=== PATIENT | male | born 1945 | race Hispanic/Latino ===

== ENCOUNTER 2017-09-18 12:07 | Emergency (ER) | payer OTHER, MEDICARE ==
[~2017-09-18 12:07] MED LIST: ASPIRIN ADULT L81 M1 PO; ASPIRIN81 M1; ATORVASTATIN CA40 MG PO; FENOFIBRATE40 MG PO; FLEXERIL10 MG PO; JANUVIA 100MG100 MG PO; LIDODERM 5% PAT1 PAT TOP; METFORMIN1000 MG PO; MULTIVITAMIN1 TAB; NAPROXEN500 MG PO; NORVASC 5MG TAB5 MG PO
--- NOTE | 2017-09-18 14:18 | ED GENERAL ADULT ---
History of Present Illness General Chief Complaint: Laceration Procedure Stated Complaint: LAC TO HEAD Source: patient Exam Limitations: language barrier Vital Signs & Intake/Output Vital Signs & Intake/Output Vital Signs Date Time Temp Pulse Resp B/P B/P Pulse O2 O2 Flow FiO2 Mean Ox Delivery Rate 09/18 1747 98.2 78 18 144/62 97 Room Air Room Air 09/18 1435 98.2 09/18 1433 98.2 77 20 146/66 97 Room Air 09/18 1247 98.2 73 16 152/72 99 Room Air Room Air Allergies Coded Allergies: No Known Allergies (09/18/17) Reconcile Medications Amlodipine (Norvasc 5MG Tab) 5 MG TAB 1 TAB PO DAILY blood pressure (Reported ) Aspirin 81 MG CTB 1 heart (Reported) Aspirin (Aspirin Adult Low Strength) 81 MG ECT 1 TAB PO D ANTICOAG Atorvastatin Calcium (Lipitor) 40 MG TAB 1 TAB PO DAILY CHOLESTEROL (Reported ) CYCLOBENZAPRINE HCL (Flexeril) 10 MG TAB 1 TAB PO TID PAIN CONTROL (Reported) Avoid operating motor vehicle or heavy machinery Fenofibrate 40 MG TAB 134 PO DAILY cholesterol (Reported) METFORMIN HCL (Metformin) 1,000 MG TAB 1 TAB PO BID DIABETES (Reported) Multivitamin (Multiple Vitamins) 1 TAB TAB 1 supp (Reported) Sitagliptin Phosphate (Januvia) 100 MG TAB 1 TAB PO DAILY diabetes (Reported) Triage Note: PT TO TRIAGE WITH LAC TO FOREHEAD. PT HIT HEAD OF METAL TABLE. DENIES LOC. BLEEDING CONTROLED, LAC IS 1.5 INCHES ACCROSS. UNSURE ON LAST TETANUS Triage Nurses Notes Reviewed? yes Onset: Abrupt Duration: hour(s): Timing: single episode today HPI: 72 y/o male with h/o HTN, HLD, DM presenting with forehead lac s/p mechancial fall just TECHNICAL PLANNER. Pt reports he tripped and fell, striking head on edge of metal table. No LOC. On 81mg ASA daily, no AC. Denies LAWSON, visual changes, nausea, vomiting. Unsure of last tetanus. (Althea Santos) Past History Travel History Traveled to [place] past 21 day No Medical History Any Pertinent Medical History? see below for history Neurological: NONE EENT: NONE Cardiovascular: hypertension, hyperlipidemia Respiratory: NONE Gastrointestinal: NONE Hepatic: NONE Renal: NONE Musculoskeletal: NONE Psychiatric: NONE Endocrine: diabetes Blood Disorders: NONE Cancer(s): NONE ACTIVE DIRECTORY ENGINEER/Reproductive: NONE History of MRSA: No History of VRE: No History of CDIFF: No Surgical History Surgical History: hernia repair-inguinal Psychosocial History Who do you live with Spouse What is your primary language [place] Tobacco Use: Never used Family History Hx Contributory? No (Althea Santos) Review of Systems Review of Systems Constitutional: Reports: no symptoms. EENTM: Reports: no symptoms. Respiratory: Reports: no symptoms. Cardiovascular: Reports: no symptoms. GI: Reports: no symptoms. Genitourinary: Reports: no symptoms. Musculoskeletal: Reports: no symptoms. Skin: Reports: see HPI. Neurological/Psychological: Reports: no symptoms. Hematologic/Endocrine: Reports: no symptoms. Immunologic/Allergic: Reports: no symptoms. (Althea Santos) Physical Exam Physical Exam General Appearance: well developed/nourished, no apparent distress, alert, awake , comfortable Head: atraumatic, normal appearance Eyes: Bilateral: normal appearance, PERRL, EOMI. Ears, Nose, Throat: normal ENT inspection Neck: normal inspection, full range of motion, no midline tenderness Respiratory: normal breath sounds, chest non-tender, lungs clear Cardiovascular: regular rate/rhythm, normal peripheral pulses Gastrointestinal: soft, non-tender Back: normal inspection, normal range of motion, no vertebral tenderness Extremities: normal inspection, normal range of motion Neurologic/Psych: no motor/sensory deficits, awake, alert, oriented x 3, normal gait, normal mood/affect, striper spray gun II-XII nml as tested, normal cerebellar function Reflexes: 2+: bicep (R), bicep (L), tricep (L), tricep (L), knee (R), knee (L), ankle (R), ankle (L). Skin: normal color, warm/dry, curved lac ~2-3 cm to center of forehead, +slow arterial bleed to center of wound. No exposed tendons or nerves or FB. Core Measures ACS in differential dx? No CVA/TIA Diagnosis: No Sepsis Present: No Sepsis Focused Exam Completed? No (Althea Santos) Progress Differential Diagnoses I considered the following diagnoses in my evaluation of the patient: [Forehead lac vs arterial injury, low concern for nerve injury vs FB vs tendon injury vs ICH vs cranial fx vs facial fx vs c-spine fx] Plan of Care: CT head and c-spine unremarkable. Arterial bleed controlled with epi and surgicel. Wound repaired with good skin approximation. Counseled on wound care and given strict return precautions for feves, purulent drainage, erythema, expending hematoma, or uncontrolled bleeding. Tetanus updated. Discussed with Dr. Schwartz. Initial ED EKG: none (Alteha Santos) Departure Departure Disposition: HOME OR SELF CARE Condition: Stable Clinical Impression Primary Impression: Forehead laceration Secondary Impressions: Closed head injury Referrals: Adrian Lopes MD (PCP/Family) Additional Instructions: Keep the wound clean and dry. Follow up for suture removal in 7 days. Return to the emergency room for any new or worsening symptoms, including signs of bleeding or infection. Departure Forms: Customer Survey General Discharge Information (Althea Santos) PA/BILINGUAL CALL CENTER REPRESENTATIVE Co-Sign Statement Statement: ED Attending supervision documentation- [] I saw and evaluated the patient. I have also reviewed all the pertinent lab results and diagnostic results. I agree with the findings and the plan of care as documented in the PA's/BILINGUAL CALL CENTER REPRESENTATIVE's documentation. [x] I have reviewed the ED Record and agree with the PA's/BILINGUAL CALL CENTER REPRESENTATIVE's documentation. [] Additions or exceptions (if any) to the PAs/BILINGUAL CALL CENTER REPRESENTATIVE's note and plan are summarized below: [] (Juan Jose Schwartz DO) Procedures Laceration/Wound Repair Laceration/Wound Repair: Wound Location: face (forehead) Wound's Depth, Shape: irregular Wound Length (cm): 3 Wound Explored: clean, no foreign body removed Irrigated w/ Saline (ccs): 120 Betadine Prep? Yes Anesthesia: lidocaine w/ epi (1%) Wound Repaired With: sutures Suture Size/Type: 5:0, nylon Number of Sutures: 5 Layer Closure? No Date of Last Tetanus: 09/18/17 (Althea Santos) Critical Care Note Critical Care Note Critical Care Time: non-applicable (Althea Santos)
--- NOTE | 2017-09-18 15:51 | CT SCAN REPORT ---
EXAMINATION: CT HEAD WITHOUT CONTRAST CT CERVICAL SPINE WITHOUT CONTRAST CLINICAL INFORMATION: Head strike. COMPARISON: None. TECHNIQUE: Imaging was performed from the skull base to vertex without intravenous administration of contrast. In addition, helical noncontrast CT imaging was acquired through the cervical spine and source images were reviewed along with axial reconstructions and sagittal and coronal MPRs. DLP: 933.28 mGy-cm FINDINGS: HEAD: No intracranial mass, hemorrhage, or midline shift is visualized. There is atrophy with prominence of the ventricles and the sulci and hypodensity of the periventricular white matter due to chronic small vessel ischemic disease. There is vascular calcifications of the internal carotid arteries bilaterally. No extra-axial collections are identified. The paranasal sinuses and mastoid air cells are well aerated. CERVICAL SPINE: There is no evidence of acute cervical spine fracture. Vertebral bodies remain normal in height. Cervical vertebrae have normal alignment. There is multilevel degenerative spondylosis of the cervical spine with disc height narrowing and endplate spurs and facet joint arthrosis. There is marked disc height narrowing, endplate spurring at C4-C5 to C6-C7. No pre- or paravertebral soft tissue abnormality is identified. Limited assessment of the lung apices is unremarkable. IMPRESSION: 1. No acute intracranial pathology. 2. No CT evidence of acute cervical spine fracture or traumatic subluxation
[2017-09-18 17:47] VITALS: BP 144/62
== END 2017-09-18 17:48 ==
LOC: ERH 12:07
DX: S01.81XA Laceration without foreign body of other part of head, initial encounter (principal); S09.90XA Unspecified injury of head, initial encounter; W01.190A Fall on same level from slipping, tripping and stumbling with subsequent striking against furniture, initial encounter; Y93.01 Activity, walking, marching and hiking; Y92.9 Unspecified place or not applicable
CPT/HCPCS: 90471; 90714